=== PATIENT | male | born 1995 | race Two or more races ===

== ENCOUNTER 2024-06-04 13:17 | Emergency (ER) | payer MEDICAID, OTHER ==
[~2024-06-04] VITALS: Ht 167.6 cm; Wt 72.7 kg
--- NOTE | 2024-06-04 13:25 | ED.PDOC ---
Psychiatric HPI Comments HPI: Poor Historian. 28-year-old male brought in by ambulance from a [facility]. Patient has been in a fpc for the last three days he is otherwise homeless. In the last three days he has not been allowed to take his psychiatric medications for schizophrenia bipolar and depression. Patient has started hearing some voices last night tell him to hurt himself. Patient has suicidal ideation without a plan. Denies any homicidal ideation. Patient was agitated this morning and was banging his head against the wall at the facility. [place] [facility] to [place] bus station where he took the bus to go to [place] facility/clinic. He was sent from [facility] for further evaluation and treatment. Vitals T: 97.9 F RR: 14 HR: 101 BP: 125/85 O2: 99 % on RA PMH: schizophrenia,bipolar, depression PSH: denies Social hx: denies tobacco use, denies ETOH use, denies drug use medications; BuSpar 20 mg, Depakote 100 mg, Seroquel 200 mg allergies: NKDA REVIEW OF SYSTEMS: CONSTITUTIONAL: Denies acute: fever, diaphoresis, chills, generalized weakness. HEAD: Denies acute: photophobia Eyes: Denies acute: Double vision, vision loss, eye pain, eye discharge. EARS: Denies acute: tinnitus, hearing loss, ear discharge, ear pain, THROAT: Denies acute: sore throat, swelling, difficulty swallowing , pain with swallowing, change in voice. NECK: Denies acute: neck pain, neck swelling, stiff neck. HEART: Denies acute : chest pain, palpitations, LUNGS: Denies acute: SOB, wheezing, cough, hemoptysis ABDOMEN: Denies acute: abdominal pain, Nausea, Vomiting, diarrhea, melena , hematemesis, hematochezia SKIN: Denies acute: rash, redness, lesions, itchiness. EXTREMITIES: Denies acute: calf pain, numbness, tingling, weakness, Denies acute: Low back pain. Neuro: Denies acute: focal neurological deficit, motor or sensory focal neurological deficit, tremors, seizure like activity, confusion, dizziness, change in mental status, loss of bowel or bladder function, cauda equina like symptoms. : Denies acute: dysuria, hematuria, flank pain, increase in urinary frequency. PSYCH: Denies acute: , homicidal ideation. PHYSICAL EXAM: General: no acute distress, awake and alert. Head: normocephalic, atraumatic. Neck: supple, trachea is midline, no swelling. Throat: Normal phonation. Eyes:, no erythema, no purulent discharge, no proptosis, no icterus. Heart: regular rate, regular rhythm, no significant murmur appreciated. Lungs: no apparent respiratory distress, Able to speak in full sentences. No wheezing, no rhonchi, no crackles. No stridors Clear to auscultation bilaterally. Abdomen: non tender to palpation, non distended, soft, no guarding, no rebound, + bowel sounds. Neuro: Awake, Alert, oriented to name, self, situation, follows commands GCS=15. Speech is normal. Skin: no petechia, no purpura, no cyanosis, non-pale, not jaundice. Lower extremities: --no - Pitting edema no deformity, no focal swelling, no calf TTP. Makes eye contact. moves all four extremities. Face: no apparent facial droop. Chief Complaint: Suicidal Time Seen by MD: 13:20 Reviewed Notes: Nurses Notes, Piece Cutter Notes Information Source: Patient, Emergency Med Personnel Mode of Arrival: EMS Past Medical History PAST MEDICAL HISTORY: Depression, Schizophrenia Past Medical History (Other): bipolar Surgical History: Denies all surgeries Family History Family History: Reviewed,noncontributory to illness Social History Smoker: Non-Smoker Alcohol: Denies ETOH Use Drugs: Denies Drug Use Lives In: Home Was a procedure done? Was a procedure done?: No Psych Differential Dx Psych. Differential Dx: Anxiety, Bipolar Disorder, Depression, Hopeless, Panic Disorder, Schizoprenia, Suicidal OD Differential Dx: Bipolar Disorder, Conversion Disorder, Hallucinations, Personality Disorder, Schizophrenia, Substance Abuse, Suicidal Attempt, Suicidal Gesture Suicidal Differential Dx: Alcohol Abuse, Anxiety, Bipolar Disorder, Conversion Disorder, Depression, Homicidal, Laceration, Panic Disorder, Personality Disorder, Schizoprenia, Substance Abuse X-Ray, Labs, Meds, VS Vital Signs Date Time Temp Pulse Resp B/P (MAP) Pulse Ox O2 Delivery O2 Flow Rate FiO2 06/04/24 21:43 79 16 99 Room Air* 0 21 06/04/24 21:43 98.6 79 16 136/73 (94) 99 98.6 06/04/24 14:30 99.1 112 18 138/91 (107) 96 99.1 06/04/24 13:20 97.9 101 14 124/85 (98) 99 Lab Test 06/04/24 14:10 Range/Units White Blood Count 5.7 4.4-10.8 10^3/uL Red Blood Count 4.28 L 4.5-5.90 10^6/uL Hemoglobin 13.5 13.5-17.5 g/dL Hematocrit 38.8 L 41.0-53.0 % Mean Corpuscular Volume 90.8 80.0-100.0 fL Mean Corpuscular Hemoglobin 31.6 28.0-32.0 pg Mean Corpuscular Hemoglobin Concent 34.8 32.0-36.0 g/dL Red Cell Distribution Width 13.8 11.8-14.3 % Platelet Count 402 140-450 10^3/uL Mean Platelet Volume 7.9 6.9-10.8 fL Neutrophils (%) (Auto) 58.1 37.0-80.0 % Lymphocytes (%) (Auto) 31.5 10.0-50.0 % Monocytes (%) (Auto) 7.2 0.0-12.0 % Eosinophils (%) (Auto) 2.6 0.0-7.0 % Basophils (%) (Auto) 0.6 0.0-2.0 % Neutrophils # (Auto) 3.3 1.6-8.6 10 ^3/uL Lymphocytes # (Auto) 1.8 0.4-5.4 10 ^3/uL Monocytes # (Auto) 0.4 0-1.3 10 ^3/uL Eosinophils # (Auto) 0.1 0-0.8 10 ^3/uL Basophils # (Auto) 0 0-0.2 10 ^3/uL Nucleated Red Blood Cells 0.1 % Sodium Level 139 136-145 mmol/L Potassium Level 3.9 3.5-5.1 mmol/L Chloride Level 104 98-107 mmol/L Carbon Dioxide Level 28 20-31 mmol/L Anion Gap 7 5-15 Blood Urea Nitrogen 11 9-23 mg/dL Creatinine 0.91 0.700-1.30 mg/dL Glomerular Filtration Rate Calc 116 >90 mL/min BUN/Creatinine Ratio 12.1 10.0-20.0 Serum Glucose 103 74-106 mg/dL Lactic Acid Level 1.7 0.4-2.0 mmol/L Calcium Level 10.3 8.7-10.4 mg/dL Magnesium Level 2.1 1.6-2.6 mg/dL Total Bilirubin 0.2 0.2-1.0 mg/dL Aspartate Amino Transferase (AST) < 8 L 13-40 U/L Alanine Aminotransferase (ALT) 14 7-40 U/L Alkaline Phosphatase 74 46-116 U/L Total Protein 7.6 5.7-8.2 g/dL Albumin 4.7 3.2-4.8 g/dL Current Medications Medications (Trade) Dose Ordered Sig/Sandra Route Start Time Stop Time Status Last Admin Buspirone HCl (Buspar Tablet) 20 mg ONCE ONCE PO 06/04/24 18:45 06/04/24 19:02 DC 06/04/24 21:30 Quetiapine Fumarate (SEROquel TABLET) 200 mg ONCE ONCE PO 06/04/24 18:45 06/04/24 19:03 DC 06/04/24 21:30 Divalproex Sodium (Depakote "Dr" Tablet) 250 mg BID PO 06/04/24 22:00 06/04/24 21:30 [place] [address] Ph: [phone] DIAGNOSTIC IMAGING Diagnostic Imaging Report : [id number] Signed PATIENT: MARLYS MORALEST: [id number] UNIT: [id number] : 1995 LOC: ER ROOM / BED: / AGE / SEX: 28 / M ADM STATUS: REG ER SERVICE 1804 ORDERING PHYSICIAN: RENEA SHUKLA DO PROCEDURE(s): HWOCT - HEAD WITHOUT CONTRAST REASON: headache ORDER NUMBER(s): [id number], ACCESSION NUMBER(s): [id number] EXAM: CT HEAD WITHOUT CONTRAST HISTORY: headache COMPARISON: None TECHNIQUE: Axial images of the head were obtained and reformatted in coronal and sagittal planes. All CT scans at this medical facility are performed using dose modulation techniques as appropriate to a performed exam including the following: Automated exposure control was utilized; adjustment of the MA and/or KV according to patient size; and use of iterative reconstruction technique. CT Dose: CTDI volume is 67.15 mGy. Dose-length product is 1188.64 mGy*cm FINDINGS: There is no evidence of acute intracranial hemorrhage, mass, mass effect midline shift. There is no hydrocephalus or extra-axial fluid collection. Caldera-white matter differentiation is maintained.. The visualized paranasal sinuses and mastoid air cells are clear. The calvarium is intact. IMPRESSION: 1. No acute intracranial process. HS:Y ATED BY: DANIEL PURI MD DICTATED DATE/TIME: 06/04/241422 SIGNED BY: DANIEL PURI MD SIGNED DATE/TIME: 06/04/241422 CC: Time of 1ST Reevaluation: 18:39 (Spoke with Dr. Morton the psychiatrist on the phone who evaluated the patient via tele psych. He recommends placement of a hold on 5150 hold and transfer with the patient's psychiatric facility for further evaluation. He recommends to restart the patient's home medications of BuSpar 20 mg t.i.d. Seroquel [address] b.i.d.) Reevaluation 1ST: Improved Patient Education/Counseling: Diagnosis, Treatment Family Education/Counseling: No Family Present Assigned to Dr. dr Ochoa Comments pt has been medically cleared. pt seen and evaluated by SW and TelePsych. pt is awaiting a 5150 hold and transfer to psych facility. the care of this pt was transferred to dr. Ochoa. Departure 1 Departure Time of Disposition: 15:26 Impression: Primary Impression: Suicidal ideation Additional Impressions: Hallucination Patient needs psychiatric hold for evaluation Disposition: 30 STILL A PATIENT Condition: Stable Discharged With: Self Critical Care Note Critical Care Time?: No I personally scribed for RENEA SHUKLA DO ([email or web address]) on 06/04/24 at 13:25. Electronically submitted by Suad Alicea ([email or web address]). I personally scribed for RENEA SHUKLA DO ([email or web address]) on 06/04/24 at 14:01. Electronically submitted by Suad Alicea ([email or web address]). I personally scribed for RENEA SHUKLA DO ([email or web address]) on 06/04/24 at 14:27. Electronically submitted by Suad Alicea ([email or web address]). RENEA SHUKLA DO Jun 04, 2024 13:25
--- NOTE | 2024-06-04 14:24 | DVH ---
EXAM: CT HEAD WITHOUT CONTRAST HISTORY: headache COMPARISON: None TECHNIQUE: Axial images of the head were obtained and reformatted in coronal and sagittal planes. All CT scans at this medical facility are performed using dose modulation techniques as appropriate t o a performed exam including the following: Automated exposure control was utilized; adjustment of th e MA and/or KV according to patient size; and use of iterative reconstruction technique. CT Dose: CTDI volume is 67.15 mGy. Dose-length product is 1188.64 mGy*cm FINDINGS: There is no evidence of acute intracranial hemorrhage, mass, mass effect midline shift. There is no h ydrocephalus or extra-axial fluid collection. Caldera-white matter differentiation is maintained.. The visualized paranasal sinuses and mastoid air cells are clear. The calvarium is intact. IMPRESSION: 1. No acute intracranial process. HS:Y
[2024-06-04 14:29] LABS: Basophils # (auto) 0 10 ^3/uL (0-0.2); Basophils % (auto) 0.6 % (0.0-2.0); Eosinophils # (auto) 0.1 10 ^3/uL (0-0.8); Eosinophils % (auto) 2.6 % (0.0-7.0); Hematocrit 38.8 % (41.0-53.0); Hemoglobin 13.5 g/dL (13.5-17.5); Lymphocytes # (auto) 1.8 10 ^3/uL (0.4-5.4); Lymphocytes % (auto) 31.5 % (10.0-50.0); Mean Corpuscular Hemoglobin 31.6 pg (28.0-32.0); Mean Corpuscular Hgb Conc. 34.8 g/dL (32.0-36.0); Mean Corpuscular Volume 90.8 fL (80.0-100.0); Monocytes # (auto) 0.4 10 ^3/uL (0-1.3); Monocytes % (auto) 7.2 % (0.0-12.0); Neutrophils # (auto) 3.3 10 ^3/uL (1.6-8.6); Neutrophils % (auto) 58.1 % (37.0-80.0); Nucleated Red Blood Cells % 0.1 %; Platelet Count (auto) 402 10^3/uL (140-450); Red Blood Cells 4.28 10^6/uL (4.5-5.90); Red Cell Distribution Width 13.8 % (11.8-14.3); White Blood Cell 5.7 10^3/uL (4.4-10.8)
[2024-06-04 14:39] LABS: Alanine Aminotransferase 14 U/L (7-40); Albumin 4.7 g/dL (3.2-4.8); Alkaline Phosphatase 74 U/L (46-116); Anion Gap 7 (5-15); Aspartate Aminotransferase < 8 U/L (13-40); BUN/Creatinine Ratio 12.1 (10.0-20.0); Bilirubin, Total 0.2 mg/dL (0.2-1.0); Blood Urea Nitrogen 11 mg/dL (9-23); Calcium 10.3 mg/dL (8.7-10.4); Carbon Dioxide 28 mmol/L (20-31); Chloride 104 mmol/L (98-107); Glucose 103 mg/dL (74-106); Magnesium 2.1 mg/dL (1.6-2.6); Potassium 3.9 mmol/L (3.5-5.1); Sodium 139 mmol/L (136-145); Total Protein 7.6 g/dL (5.7-8.2)
--- NOTE | 2024-06-04 18:39 | DVHINCON2 ---
Date of Service if different f: Jun 04, 2024 Time of Service: 18:18 Consultation ([facility]) Consulting Physician: HENRY TAYLOR MD Labs Laboratory Tests Test 06/04/24 14:10 White Blood Count 5.7 10^3/uL (4.4-10.8) Red Blood Count 4.28 10^6/uL (4.5-5.90) Hemoglobin 13.5 g/dL (13.5-17.5) Hematocrit 38.8 % (41.0-53.0) Mean Corpuscular Volume 90.8 fL (80.0-100.0) Mean Corpuscular Hemoglobin 31.6 pg (28.0-32.0) Mean Corpuscular Hemoglobin Concent 34.8 g/dL (32.0-36.0) Red Cell Distribution Width 13.8 % (11.8-14.3) Platelet Count 402 10^3/uL (140-450) Mean Platelet Volume 7.9 fL (6.9-10.8) Neutrophils (%) (Auto) 58.1 % (37.0-80.0) Lymphocytes (%) (Auto) 31.5 % (10.0-50.0) Monocytes (%) (Auto) 7.2 % (0.0-12.0) Eosinophils (%) (Auto) 2.6 % (0.0-7.0) Basophils (%) (Auto) 0.6 % (0.0-2.0) Neutrophils # (Auto) 3.3 10 ^3/uL (1.6-8.6) Lymphocytes # (Auto) 1.8 10 ^3/uL (0.4-5.4) Monocytes # (Auto) 0.4 10 ^3/uL (0-1.3) Eosinophils # (Auto) 0.1 10 ^3/uL (0-0.8) Basophils # (Auto) 0 10 ^3/uL (0-0.2) Nucleated Red Blood Cells 0.1 % Sodium Level 139 mmol/L (136-145) Potassium Level 3.9 mmol/L (3.5-5.1) Chloride Level 104 mmol/L (98-107) Carbon Dioxide Level 28 mmol/L (20-31) Anion Gap 7 (5-15) Blood Urea Nitrogen 11 mg/dL (9-23) Creatinine 0.91 mg/dL (0.700-1.30) Glomerular Filtration Rate Calc 116 mL/min (>90) BUN/Creatinine Ratio 12.1 (10.0-20.0) Serum Glucose 103 mg/dL (74-106) Lactic Acid Level 1.7 mmol/L (0.4-2.0) Calcium Level 10.3 mg/dL (8.7-10.4) Magnesium Level 2.1 mg/dL (1.6-2.6) Total Bilirubin 0.2 mg/dL (0.2-1.0) Aspartate Amino Transf (AST/SGOT) < 8 U/L (13-40) Alanine Aminotransferase (ALT/SGPT) 14 U/L (7-40) Alkaline Phosphatase 74 U/L (46-116) Total Protein 7.6 g/dL (5.7-8.2) Albumin 4.7 g/dL (3.2-4.8) Appearance: Stated age Psychomotor activity: WNL Behavioral: Cooperative Eye contact: Appropriate Speech: WNL Affect: Mood Congruent Mood: Depressed Thought content: Hallucinations Suicidal ideations: Present Homicidal ideations: Absent Orientation: Person, Place, Time, Situation Memory intact: Recent Intellect: Average Abstractability: WNL Concentration: Adequate Attention: Adequate Judgement: Poor Insight: Fair Vitals Vital Signs Date Time Temp Pulse Resp B/P (MAP) Pulse Ox O2 Delivery O2 Flow Rate FiO2 06/04/24 14:30 99.1 112 18 138/91 (107) 96 99.1 Treatment plan discussed: With staff Medication adjusted: Yes Labs ordered: No Psychotherapy provided: No Type: 72 hour hold History of Present Illness Reason for Consult : psychiatric evaluation for overdose PER ED PHYSICIAN: 28-year-old male brought in by ambulance from a [facility]. Patient has been in a fdc for the last three days he is otherwise homeless. In the last three days he has not been allowed to take his psychiatric medications for schizophrenia bipolar and depression. Patient has started hearing some voices last night tell him to hurt himself. Patient has suicidal ideation without a plan. Denies any homicidal ideation. Patient was agitated this morning and was banging his head against the wall at the facility. They took him care home to a bus station where he took the bus to go to [facility]/clinic. He was sent from [facility] for further evaluation and treatment. PSYCHIATRIST HPI: The patient was seen and evaluated at [facility] ED via telepsychiatry platform. 28 yr old male reported he feels suicidal and felt like banging his head against the wall to harm. He said he hears too many voices which tell him to harm himself or kill himself. He stated he is concerned that he would act on his suicidal thoughts.His mood has been feeling depressed, down and out of control. He has been sleeping poorly and is scared of harming himself. He attempted to hang himself 6 months ago. He denied having homicidal ideation and visual hallucinations. Past Psychiatric History : "A lot" of hospitalizations. Three past suicide attempts, last time by hanging six months ago. Diagnosed with schizophrenia and depression since age 13. Past Medical History: hypertension Current Medications: Buspar 20mg TID, seroquel 200mg qhs, Depakote 250mg BID NKDA Substance use: Smokes MJ most days "when I have it." Occasional meth use. Last time about two weeks ago. Denied alcohol and other substance use. Social History : Currently homeless. Moved from [place] where he was at a [facility] residence in [place] which wouldn't let him take his psych meds so he left today after being there three days. Diagnosis: Schizophrenia Formulation: This 28 yr old male appears to suffer from schizophrenia and has been off his medications and feeling suicidal with high risk for self harm. He may benefit from admission to [facility] and starting his outpatient medications. He meets criteria for involuntary hold on basis of danger to self. Plan: 1. Transfer to behavioral health unit for observation stabilization and treatment. 2. Legal-initiate 5150 involuntary hold for danger to self. 3. Medication: recommend starting the following: Buspar 20mg TID Seroquel 200mg qhs Depakote DR 250mg BID 4. Contact psychiatry if further follow up or reevaluation is desired. 5. Case discussed with ED Physician, Dr Villanueva. Assessment/Diagnosis/Plan Reviewed: Labs, Medications, Previous Orders HENRY TAYLOR MD Jun 04, 2024 18:19
[2024-06-04 21:30] VITALS: PULSE 113; RESP 24; O2SAT 98
[2024-06-04] MEDS: busPIRone HCL 10 MG TAB PO ONE (21:30)
[2024-06-04] MEDS: QUEtiapine FUMARATE 100 MG TAB PO ONE (21:30)
[2024-06-04 21:43] VITALS: PULSE 79; RESP 16; O2SAT 99
[2024-06-05 07:52] VITALS: PULSE 78; RESP 18; O2SAT 98
[2024-06-05 07:55] LABS: Urine Bacteria None Seen /hpf (None Seen)
[2024-06-05 08:03] LABS: Urine Blood Negative /uL (Negative); Urine Clarity Clear (Clear); Urine Color Light-Yellow (Yellow); Urine Protein, UAD TRACE (Negative); Urine Specific Gravity 1.025 (1.001-1.035); Urine Urobilinogen Normal (Negative); Urine WBC 1 /hpf (0 - 3); Urine pH 6.5 (5.0-9.0)
[2024-06-05 08:10] LABS: Amphetamine Screen, Urine Neg (NEGATIVE); Barbiturate Scree,Urine Neg (NEGATIVE); Benzodiazephine Screen, Urine Neg (NEGATIVE); Cannabinoid Screen, Urine Neg (NEGATIVE); Cocaine Screen, Urine Neg (NEGATIVE); Opiate Scree,Urine Neg (NEGATIVE); Phencyclidine Screen, Urine Neg (NEGATIVE)
[2024-06-05] MEDS ORDERED: busPIRone HCL 10 MG TAB PO ONE (12:00)
[2024-06-05] MEDS: QUEtiapine FUMARATE 100 MG TAB PO ONE (12:18)
[2024-06-05] MEDS: busPIRone HCL 10 MG TAB PO ONE ×2 (12:19→22:07)
[2024-06-05] MEDS: LORazepam 0.5 MG TAB PO ONE (16:56)
[2024-06-05 19:40] VITALS: PULSE 63; RESP 16; O2SAT 100
[2024-06-05] MEDS: QUEtiapine FUMARATE 100 MG TAB PO SCH (22:07)
[2024-06-06 05:25] VITALS: BP 127/76; PULSE 83; RESP 16; TEMP 98.2; O2SAT 100
== END 2024-06-06 05:39 ==
LOC: EDBD 13:17 → ER 13:17
DX: F20.9 Schizophrenia, unspecified (principal); R45.851 Suicidal ideations; F32.9 Major depressive disorder, single episode, unspecified; R51.9 Headache, unspecified; Z00.8 Encounter for other general examination; Z79.899 Other long term (current) drug therapy; Z59.00 Homelessness unspecified
CPT/HCPCS: 36415; 70450; 80053; 80307; 81001; 83605; 83735; 85025

== ENCOUNTER 2024-10-28 19:17 | Emergency (ER) | payer SELFPAY ==
[~2024-10-28] VITALS: Ht 154.9 cm; Wt 66.6 kg
--- NOTE | 2024-10-28 19:45 | ED.PDOC ---
History of Present Illness HPI Comments 28 y/o M, with a history of HTN, schizophrenia, suicidal ideations and previous suicidal attempts, and polysubstance abuse, presents with c/o suicidal ideations, auditory hallucinations, and chest pain, today. Patient reports relapse in suicidal ideations and hearing voices, endorsing him to kill himself and harm others following recent 51/50 hold at another facility in [place], [place], 2x days ago. Patient reports additional onset of chest pain, today, following most recent suicide attempt by jumping in front of traffic being intervened by a bystander, this evening. He denies any current homicidal ideations, shortness of breath, palpitations, nausea, vomiting, or other associated symptoms at this time. Time Seen by MD: 19:30 Reviewed Notes: Nurses Notes, Medications, Allergies Allergies: Coded Allergies: NO KNOWN ALLERGIES (Unverified , 06/04/24) Information Source: Patient Mode of Arrival: Ambulatory Severity: Moderate Timing: Days Duration: Since onset Prehospital treatment: None Past Medical History PAST MEDICAL HISTORY: Depression, HTN, Schizophrenia Past Medical History (Other): previous suicidal attempts Surgical History: Denies all surgeries Family History Family History: Reviewed,noncontributory to illness Social History Smoker: Cigarettes Alcohol: Denies ETOH Use Drugs: Marijuana Lives In: Home Constitutional: denies: chills, diaphoresis, fatigue, fever, malaise, sweats, weakness, others EENTM: denies: blurred vision, double vision, ear bleeding, ear discharge, ear drainage, ear pain, ear ringing, eye pain, eye redness, hearing loss, mouth pain, mouth swelling, nasal discharge, nose bleeding, nose congestion, nose pain, photophobia, tearing, throat pain, throat swelling, voice changes, others Respiratory: denies: cough, hemoptysis, orthopnea, SOB at rest, shortness of breath, SOB with excertion, stridor, wheezing, others Cardiovascular: reports: chest pain; denies: dizzy spells, diaphoresis, Dyspnea on exertion, edema, irregular heart beat, left arm pain, lightheadedness, palpitations, PND, syncope, others Gastrointestinal: denies: abdomen distended, abdominal pain, blood streaked bowels, constipated, diarrhea, dysphagia, difficulty swallowing, hematemesis, melena, nausea, poor appetite, poor fluid intake, rectal bleeding, rectal pain, vomiting, others Genitourinary: denies: burning, dysuria, flank pain, frequency, hematuria, incontinence, penile discharge, penile sore, pain, testicle pain, testicle swelling, urgency, others Neurological: denies: dizziness, fainting, headache, left sided numbness, left sided weakness, numbness, paresthesia, pre-existing deficit, right sided numbness, right sided weakness, seizure, speech problems, tingling, tremors, weakness, others Musculoskeletal: denies: back pain, gout, joint pain, joint swelling, muscle pain, muscle stiffness, neck pain, others Integumetry: denies: bruises, change in color, change in hair/nails, dryness, laceration, lesions, lumps, rash, wounds, others Allergic/Immunocompromised: denies: Difficulty Healing, Frequent Infections, Hives, Itching, others Hematologic/Lymphatic: denies: anemia, blood clots, easy bleeding, easy bruising, swollen glands, others Endocrine: denies: excessive hunger, excessive sweating, excessive thirst, excessive urination, flushing, intolerance to cold, intolerance to heat, unexplained weight gain, unexplained weight loss, others Psychiatric: reports: suicidal, others (auditory hallucinations ); denies: anxiety, bipolar disorder, depression, hopeless, panic disorder, schizophrenia, sleepless All Other Systems: Reviewed and Negative Physical Exam General Appearance: Other (The patient was suicidal) HEENT: Normal ENT Inspection, Pharynx Normal, TMs Normal Neck: Full Range of Motion, Non-Tender, Normal, Normal Inspection Respiratory: Chest Non-Tender, Lungs Clear, No Accessory Muscle Use, No Respiratory Distress, Normal Breath Sounds Cardiovascular: No Edema, No JVD, No Murmur, No Gallop, Normal Peripheral Pulses, Regular Rate/Rhythm Breast Exam: Deferred Gastrointestinal: No Organomegaly, Non Tender, No Pulsatile Mass, Normal Bowel Sounds, Soft Genitalia: Deferred Pelvic: Deferred Rectal: Deferred Extremities: No calf tenderness, Normal capillary refill, Normal inspection, Normal range of motion, Non-tender, No pedal edema Musculoskeletal : Apperance: Normal Neurologic: Alert, microbiology manager II-XII nml as Tested, No Motor Deficits, Normal Affect (Depressed affect), No Sensory Deficits Cerebellar Function: Normal Reflexes: Normal Skin: Dry, Normal Color, Warm Lymphatic: No Adenopathy Was a procedure done? Was a procedure done?: No EKG EKG : Pulse Rate (adult): 82 [place]: Normal Cardiac Rhythm: NSR Block: None Hypertrophy: None ST: Normal Differential Dx Considerations may include: suicidal, depression, hopelessness, musculoskeletal pain, angina, costochondritis, pericarditis, MO, PE, ACS, among others X-Ray, Labs, Meds, VS Vital Signs Date Time Temp Pulse Resp B/P (MAP) Pulse Ox O2 Delivery O2 Flow Rate FiO2 10/28/24 20:27 84 18 97 Room Air* 0 21 10/28/24 19:45 82 10/28/24 19:35 98.2 84 18 126/82 (97) 97 98.2 10/28/24 19:35 98.2 84 18 126/82 (97) 97 98.2 10/28/24 19:32 82 Lab Test 10/28/24 19:45 Range/Units Salicylates Level < 3.0 -30 mg/dL Acetaminophen Level < 2.0 L 10.0-20.0 UG/ML Plasma/Serum Blood Alcohol 4.0 <10 mg/dL The salicylate level, acetaminophen level and alcohol level are negative At this time the patient is considered to be medically cleared to be evaluated by the psychiatric telemedicine team We are ordering the test at this time The patient has been medically cleared The patient was being signed out to Dr. Menard Time of 1ST Reevaluation: 20:00 Reevaluation 1ST: Unchanged Patient Education/Counseling: Diagnosis, Treatment, Prognosis Family Education/Counseling: No Family Present Departure 1 Departure Time of Disposition: 21:49 Impression: Primary Impression: Suicidal ideation Disposition: 30 STILL A PATIENT Condition: Fair Critical Care Note Critical Care Time?: No Stability Stability form required: No Heart Score Heart Score: Heart Score Response (Comments) Value History N/A 0 EKG Normal 0 Age <45 0 Risk Factors 1 or 2 risk factors 1 Troponin Normal limit 0 Total 1 I personally scribed for FAYE RICE MD ([email or web address]) on 10/28/24 at 19:45. Electronically submitted by Juan Salas ([email or web address]). FAYE RICE MD Oct 28, 2024 19:45
[2024-10-28 20:26] LABS: Acetaminophen < 2.0 UG/ML (10.0-20.0); Salicylate < 3.0 mg/dL (-30)
[2024-10-28 20:27] VITALS: PULSE 84; RESP 18; O2SAT 97
--- NOTE | 2024-10-29 02:18 | DVHINCON2 ---
Date of Service if different f: Oct 29, 2024 Time of Service: 02:03 Consultation ([facility]) Consulting Physician: HENRY TAYLOR MD Labs Laboratory Tests Test 10/28/24 19:45 Salicylates Level < 3.0 mg/dL (-30) Acetaminophen Level < 2.0 UG/ML (10.0-20.0) Plasma/Serum Blood Alcohol 4.0 mg/dL (<10) Appearance: Stated age Psychomotor activity: WNL Behavioral: Cooperative Eye contact: Appropriate Speech: WNL Affect: Mood Congruent Mood: Depressed, Anxious Thought processes: Linear/Goal-directed Thought content: Hallucinations Suicidal ideations: Present Homicidal ideations: Absent Orientation: Person, Place, Time Memory intact: Recent Intellect: Average Abstractability: WNL Concentration: Adequate Attention: Adequate Judgement: WNL Insight: Fair Vitals Vital Signs Date Time Temp Pulse Resp B/P (MAP) Pulse Ox O2 Delivery O2 Flow Rate FiO2 10/28/24 20:27 84 18 97 Room Air* 0 21 10/28/24 19:35 98.2 126/82 (97) 98.2 Treatment plan discussed: With staff Medication adjusted: Yes Labs ordered: No Psychotherapy provided: No Type: Voluntary History of Present Illness Reason for Consult : psychiatric evaluation for overdose PER ED PHYSICIAN: 28 y/o M, with a history of HTN, schizophrenia, suicidal ideations and previous suicidal attempts, and polysubstance abuse, presents with c/o suicidal ideations, auditory hallucinations, and chest pain, today. Patient reports relapse in suicidal ideations and hearing voices, endorsing him to kill himself and harm others following recent 51/50 hold at another facility in [place], [place], 2x days ago. Patient reports additional onset of chest pain, today, following most recent suicide attempt by jumping in front of traffic being intervened by a bystander, this evening. He denies any current homicidal ideations, shortness of breath, palpitations, nausea, vomiting, or other associated symptoms at this time. PSYCHIATRIST HPI: The patient was seen and evaluated at [facility] ED via telepsychiatry platform. 28 yr old male reported he feels suicidal over the past two days. He noted he was going to run into ongoing traffic, but someone stopped him from going in the road and helped him get to the hospital. He noted he was admitted to the hospital for about a week and was discharged a week ago. He reported has auditory hallucinations which tell him to hurt himself and hurt others. He denied having homicidal ideation and visual hallucinations. Past Psychiatric History : Multiple hospitalizations, Last hospitalized in [place] a week ago. Three past suicide attempts, last time by hanging six months ago. Diagnosed with schizophrenia and depression since age 13. Past Medical History: hypertension Current Medications: Buspar 20mg TID, seroquel 200mg qhs, Depakote 250mg TID NKDA Substance use: Smokes MJ most days "when I have it." Last used MJ a few weeks ago. Occasional meth use. Last time about two weeks ago. Denied alcohol and other substance use. Social History : Currently homeless. Normally stays in [place]. Diagnosis: Schizophrenia Formulation: This 28 yr old male appears to suffer from schizophrenia and is a moderate risk for self harm. He may benefit from admission to [facility] and starting his outpatient medications. He meets criteria for involuntary hold on basis of danger to self, but agrees to voluntary admission to the hospital. Plan: 1. Transfer to behavioral health unit for observation stabilization and treatment. 2. Legal-Voluntary, but he meets criteria for 5150 involuntary hold for danger to self. 3. Medication: recommend starting the following: Buspar 20mg TID Seroquel 200mg qhs Depakote DR 250mg TID 4. Contact psychiatry if further follow up or reevaluation is desired. 5. Case discussed with ED Physician, Dr Menard. Assessment/Diagnosis/Plan Reviewed: Labs, Medications, Previous Orders HENRY TAYLOR MD Oct 29, 2024 02:03
[2024-10-29 02:44] LABS: Basophils # (auto) 0 10 ^3/uL (0-0.2); Basophils % (auto) 0.5 % (0.0-2.0); Eosinophils # (auto) 0.5 10 ^3/uL (0-0.8); Eosinophils % (auto) 7.7 % (0.0-7.0); Hematocrit 33.5 % (41.0-53.0); Hemoglobin 11.8 g/dL (13.5-17.5); Lymphocytes # (auto) 2.3 10 ^3/uL (0.4-5.4); Lymphocytes % (auto) 39.1 % (10.0-50.0); Mean Corpuscular Hemoglobin 30.6 pg (28.0-32.0); Mean Corpuscular Hgb Conc. 35.1 g/dL (32.0-36.0); Mean Corpuscular Volume 87.2 fL (80.0-100.0); Monocytes # (auto) 0.5 10 ^3/uL (0-1.3); Neutrophils # (auto) 2.6 10 ^3/uL (1.6-8.6); Neutrophils % (auto) 44.7 % (37.0-80.0); Platelet Count (auto) 320 10^3/uL (140-450); Red Blood Cells 3.85 10^6/uL (4.5-5.90); Red Cell Distribution Width 14.8 % (11.8-14.3); White Blood Cell 5.8 10^3/uL (4.4-10.8)
[2024-10-29 02:51] LABS: Potassium 3.9 mmol/L (3.5-5.1); Sodium 143 mmol/L (136-145)
[2024-10-29 02:52] LABS: Anion Gap 7 (5-15); Calcium 9.1 mg/dL (8.7-10.4); Carbon Dioxide 27 mmol/L (20-31)
[2024-10-29 02:53] LABS: Chloride 109 mmol/L (98-107)
[2024-10-29 02:57] LABS: BUN/Creatinine Ratio 18.8 (10.0-20.0); Blood Urea Nitrogen 18 mg/dL (9-23)
[2024-10-29 02:59] LABS: Glucose 121 mg/dL (74-106)
[2024-10-29 03:53] LABS: Urine Bacteria None Seen /hpf (None Seen)
[2024-10-29 04:00] LABS: Urine Blood Negative /uL (Negative); Urine Clarity Clear (Clear); Urine Color Light-Yellow (Yellow); Urine Protein, UAD Negative (Negative); Urine Specific Gravity 1.019 (1.001-1.035); Urine Squamous Epithelial Cell FEW /hpf (<5); Urine Urobilinogen Normal (Negative); Urine WBC < 1 /HPF (0-3); Urine pH 7.5 (5.0-9.0)
[2024-10-29] MEDS: busPIRone HCL 10 MG TAB PO ONE (04:03)
[2024-10-29] MEDS: QUEtiapine FUMARATE 100 MG TAB PO SCH (04:04)
[2024-10-29 04:12] LABS: Cannabinoid Screen, Urine Neg (NEGATIVE)
[2024-10-29 04:16] LABS: Amphetamine Screen, Urine Neg (NEGATIVE); Barbiturate Scree,Urine Neg (NEGATIVE); Benzodiazephine Screen, Urine Neg (NEGATIVE); Cocaine Screen, Urine Neg (NEGATIVE); Opiate Scree,Urine Neg (NEGATIVE); Phencyclidine Screen, Urine Neg (NEGATIVE)
--- NOTE | 2024-10-29 04:23 | ECG ---
[facility] Test Date: 2024-10-28 Test Time: 19:32:37 Pat Name: HANS MORALES Department: ED Room: Gender: M [employer]: YF : 1995 Requested By: FAYE RICE Order Number: [id number] Reading MD: Ezequiel Vicente Measurements Intervals [place] Rate: 82 P: 35 MI: 134 QRS: 29 QRSD: 88 T: 63 QT: 381 QTc: 445 Interpretive Statements Sinus rhythm ST elev, probable normal early repol pattern Baseline wander in lead(s) V2 Electronically Signed On 10-30-2024 13:09:30 PDT by Ezequiel Vicente Please click the below link to view image of tracing.
[2024-10-29 10:00] VITALS: PULSE 95; RESP 18; O2SAT 96
[2024-10-29] MEDS: busPIRone HCL 10 MG TAB PO SCH (13:55)
[2024-10-29 20:11] VITALS: PULSE 93; RESP 12; O2SAT 98
--- NOTE | 2024-10-30 05:54 | ED.PDOC ---
Departure 1 Departure Time of Disposition: 05:53 (Patient is resting comfortably. Patient is still awaiting placement at a psychiatric facility.) Impression: Primary Impression: Suicidal ideation Disposition: 30 STILL A PATIENT Condition: GORDO Gomez MD Oct 30, 2024 05:54
[2024-10-30 13:26] VITALS: BP 112/72; PULSE 96; RESP 16; TEMP 98.8; O2SAT 97
== END 2024-10-30 13:48 | disposition short-term general hospital (02) ==
LOC: ER 19:17
DX: R45.851 Suicidal ideations (principal); F17.210 Nicotine dependence, cigarettes, uncomplicated; F20.9 Schizophrenia, unspecified; F32.A Depression, unspecified; I10 Essential (primary) hypertension; F12.90 Cannabis use, unspecified, uncomplicated; Z79.899 Other long term (current) drug therapy; Z59.00 Homelessness unspecified
CPT/HCPCS: 36415; 80048; 80307; 80320; 80329; 81001; 85025; 93005